=== PATIENT | male | born 1955 | race Caucasian/White ===

== ENCOUNTER 2020-12-18 09:41 | Emergency (ER) | payer MEDICARE ==
[~2020-12-18] VITALS: Ht 195.6 cm; Wt 70.8 kg
[2020-12-18 10:31] LABS: CALCIUM 8.7 mg/dL (8.5-10.1); CREATININE 1.1 mg/dL (0.6-1.3)
[2020-12-18 10:35] LABS: APTT 26.3 Seconds (25.0-31.3)
[2020-12-18 10:45] LABS: ALBUMIN 1.6 g/dL (3.4-5.0)
[2020-12-18 11:07] LABS: PLATELET ESTIMATE ADEQUATE
[2020-12-18 11:37] LABS: ABSOLUTE EOSINOPHILS 0.7 thou/uL (0.0-0.7); ABSOLUTE LYMPHOCYTES 1.8 thou/uL (0.8-5.3); ABSOLUTE MONOCYTES 2.5 thou/uL (0.0-1.2); ABSOLUTE NEUTROPHILS 30.2 thou/uL (1.6-8.1); HEMATOCRIT 34.9 % (42.0-52.0); HEMOGLOBIN 11.5 gm/dL (14.0-18.0); MCH 28.3 pg (26.0-34.0); MCHC 32.8 g/dL (28.0-37.0); MCV 86.2 fL (80.0-100.0); PLATELET COUNT* 840 thou/uL (150-400); RBC 4.05 mil/uL (4.50-6.00); RDW-CV 14.5 % (10.5-14.5); WBC 35.1 thou/uL (4.0-11.0)
[2020-12-18 11:38] LABS: MPV 6.9 fl. (7.2-11.1)
[2020-12-18 13:19] VITALS: BP 152/66
--- NOTE | 2020-12-18 15:03 | EKG ---
[place] [address] ELECTROCARDIOGRAM REPORT Name: LADIHENOK Gibbs Room: [facility]#: [id number] Admission: 12/18/20 Attend Phys: Discharge: 12/18/20 Date of : 57 Date of Service: 12/18/20 0951 Report #: [id number] THIS REPORT FOR: //name// [facility] ED Test Date: 2020-12-18 Test Time: 09:51:35 Pat Name: HENOK JACOBS Department: Room: Gender: Vacation Sales Advisor: [facility] : 1955 Requested By: Rito Jeter Order Number: [id number] MD: Tim Quintanilla Measurements Intervals [place] Rate: 91 P: 39 IA: 157 QRS: 29 QRSD: 92 T: 44 QT: 382 QTc: 471 Interpretive Statements Sinus rhythm Probable left atrial enlargement Baseline wander in lead(s) I,II,aVR,V3,V4 No previous ECG available for comparison Electronically Signed On 12-18-2020 15:03:48 CDT by Tim Quintanilla [email or web address] <ELECTRONICALLY SIGNED> By: Tim Quintanilla MD, [facility] 12/18/20 1503 0951 0951 Tim Quintanilla MD, [facility] /EPI
== END 2020-12-18 13:20 | disposition short-term general hospital (02) ==
LOC: M.ERS 09:41
PROVIDERS: Emergency Medicine Emergency Medical Services
DX: M72.6 Necrotizing fasciitis (principal); Z20.822 Contact with and (suspected) exposure to COVID-19; E11.9 Type 2 diabetes mellitus without complications; Z90.49 Acquired absence of other specified parts of digestive tract

== ENCOUNTER 2021-08-03 13:58 | Inpatient (IN) | payer OTHER ==
[2021-08-03] VITALS (8 sets, daily range): BP systolic 111–178; BP diastolic 41–149
[~2021-08-03] VITALS: Ht 167.6 cm; Wt 66.7 kg
[2021-08-03] MEDS ORDERED: NEURONTIN100 MG PO (14:11)
[2021-08-03] MEDS ORDERED: NORCO 10-325 T1 EACH PO (14:12)
[2021-08-03] MEDS ORDERED: TOPROL XL50 MG PO (14:12)
[2021-08-03] MEDS ORDERED: LIPITOR10 MG PO (14:12)
[2021-08-03 14:28] LABS: ABSOLUTE BASOPHILS 0.1 thou/uL (0.0-0.2); ABSOLUTE EOSINOPHILS 0.1 thou/uL (0.0-0.7); ABSOLUTE LYMPHOCYTES 1.6 thou/uL (0.8-5.3); ABSOLUTE MONOCYTES 0.6 thou/uL (0.0-1.2); ABSOLUTE NEUTROPHILS 8.6 thou/uL (1.6-8.1); BASOPHILS 1.1 %; EOSINOPHILS 1.2 %; HEMATOCRIT 31.6 % (42.0-52.0); HEMOGLOBIN 10.2 gm/dL (14.0-18.0); LYMPHOCYTES 14.8 %; MCH 28.5 pg (26.0-34.0); MCHC 32.3 g/dL (28.0-37.0); MCV 88.1 fL (80.0-100.0); MONOCYTES 5.8 %; MPV 7.5 fl. (7.2-11.1); NUCLEATED RBCS 0 /100WBC; PLATELET COUNT* 425 thou/uL (150-400); POLYS 77.1 %; RBC 3.58 mil/uL (4.50-6.00); RDW-CV 15.4 % (10.5-14.5); WBC 11.1 thou/uL (4.0-11.0)
[2021-08-03 14:40] LABS: CALCIUM 8.3 mg/dL (8.5-10.1); CREATININE 1.6 mg/dL (0.6-1.3)
[2021-08-03 14:50] LABS: ALBUMIN 2.6 g/dL (3.4-5.0); MAGNESIUM 2.3 mg/dL (1.8-2.4); TOTAL BILIRUBIN 0.1 mg/dL (<0.1-1.0); TOTAL PROTEIN 6.8 g/dL (6.4-8.2)
[2021-08-03 14:51] LABS: POTASSIUM 7.2 mmol/L (3.5-5.1)
[2021-08-03 15:10] LABS: CALCIUM 8.2 mg/dL (8.5-10.1); CREATININE 1.7 mg/dL (0.6-1.3)
[2021-08-03 15:14] LABS: POTASSIUM 6.6 mmol/L (3.5-5.1)
--- NOTE | 2021-08-03 15:48 | EKG ---
[place] [address] ELECTROCARDIOGRAM REPORT Name: REYNALDOHENOK Teri Room: [place] [address] ADM IN [facility]#: [id number] Admission: 08/03/21 Attend Phys: Sukhi Loco, Discharge: Date of : 57 Date of Service: 08/03/21 1413 Report #: [id number] THIS REPORT FOR: //name// [facility] ED Test Date: 2021-08-03 Test Time: 14:13:29 Pat Name: HENOK JACOBS Department: Room: [facility] Gender: M Physician General Practice: [facility] : 1955 Requested By: Alex Chun Order Number: [id number] MD: Huan Mercedes Measurements Intervals [place] Rate: 86 P: 46 AK: 215 QRS: 66 QRSD: 105 T: 18 QT: 369 QTc: 442 Interpretive Statements Sinus rhythm Borderline prolonged AK interval Abnormal inferior Q waves Repol abnrm suggests ischemia, anterolateral Baseline wander in lead(s) V5 Compared to ECG 12/18/2020 09:51:35 Inferior Q waves now present Q waves now present Early repolarization now present Possible ischemia now present Electronically Signed On 08-03-2021 15:48:12 DANCE MASTER by Huan Mercedes [email or web address] <ELECTRONICALLY SIGNED> By: Huan Mercedes MD, [facility] 08/03/21 1548 1413 1413 Huan Mercedes MD, [facility] /EPI
[2021-08-03 16:33] LABS: CHOLESTEROL 118 mg/dL (<200); HDL CHOLESTEROL 45 mg/dL (>40); LDL CHOLESTEROL 56 mg/dL (<100); TC:HDL 2.6 Ratio (Not establshd); TRIGLYCERIDE 85 mg/dL (<150); VLDL 17 mg/dL (<40)
[2021-08-03 16:34] LABS: SERUM ASSESSMENT Clear
[2021-08-03 16:57] LABS: BE -13.3 mmol/L (-2 to +3); PCO2 42.6 mmHg (35.0-45.0)
[2021-08-03 17:01] LABS: pH 7.155 (7.340-7.450)
[2021-08-03 20:01] LABS: CALCIUM 7.7 mg/dL (8.5-10.1); CREATININE 1.6 mg/dL (0.6-1.3)
[2021-08-03 20:11] LABS: POTASSIUM 6.7 mmol/L (3.5-5.1)
[2021-08-03 22:13] LABS: URINE BILIRUBIN NEGATIVE (Negative); URINE BLOOD 2+ (Negative); URINE CLARITY CLEAR; URINE COLOR YELLOW; URINE GLUCOSE-RANDOM TRACE (Negative); URINE KETONES NEGATIVE (Negative); URINE LEUKOCYTES-REFLEX NEGATIVE (Negative); URINE NITRITE-REFLEX NEGATIVE (Negative); URINE PROTEIN 3+ (Negative); URINE SPECIFIC GRAVITY 1.025 (1.005-1.030); URINE UROBILINOGEN 0.2 E.U./dl (0.2-1.0)
[2021-08-03 22:27] LABS: INFLUENZA A ANTIGEN Negative (Negative); INFLUENZA B ANTIGEN Negative (Negative)
[2021-08-03 22:28] LABS: SQUAMOUS 0-3 Few /LPF (0-3); WBC CASTS 0-3 /LPF
[2021-08-03 22:29] LABS: URINE WBC-REFLEX 0-5 Rare /HPF (0-5)
[2021-08-03 22:30] LABS: BACTERIA-REFLEX 1-9 Few /HPF (None Seen)
[2021-08-03 22:31] LABS: TRANSITIONAL EPITHEL CELL 0-3 Few /LPF (None Seen)
[2021-08-03 22:39] LABS: CRYSTALS None Seen /LPF (None Seen)
[2021-08-03 23:42] LABS: PCO2 33.2 mmHg (35.0-45.0); pH 7.349 (7.340-7.450)
[2021-08-03 23:54] LABS: PO2 190.4 mmHg (75.0-100.0)
[2021-08-04] VITALS (15 sets, daily range): BP systolic 105–139; BP diastolic 32–53
[2021-08-04 03:02] LABS: MCH 28.8 pg (26.0-34.0); MCV 87.5 fL (80.0-100.0); MPV 7.8 fl. (7.2-11.1); NUCLEATED RBCS 0 /100WBC; RBC 2.74 mil/uL (4.50-6.00); RDW-CV 15.1 % (10.5-14.5); WBC 6.7 thou/uL (4.0-11.0)
[2021-08-04 03:14] LABS: ALBUMIN 1.8 g/dL (3.4-5.0); CALCIUM 7.8 mg/dL (8.5-10.1); CREATININE 1.6 mg/dL (0.6-1.3); MAGNESIUM 2.1 mg/dL (1.8-2.4); TOTAL BILIRUBIN 0.1 mg/dL (<0.1-1.0); TOTAL PROTEIN 5.3 g/dL (6.4-8.2)
[2021-08-04 03:16] LABS: POTASSIUM 6.5 mmol/L (3.5-5.1)
[2021-08-04 03:17] LABS: HEMOGLOBIN 7.9 gm/dL (14.0-18.0)
[2021-08-04 07:28] LABS: ABSOLUTE LYMPHOCYTES 0.7 thou/uL (0.8-5.3)
[2021-08-04 07:29] LABS: PLATELET ESTIMATE ADEQUATE
[2021-08-04 08:31] LABS: BE -1.8 mmol/L (-2 to +3); PCO2 28.2 mmHg (35.0-45.0); pH 7.487 (7.340-7.450)
--- NOTE | 2021-08-04 08:51 | EKG ---
[place] [address] ELECTROCARDIOGRAM REPORT Name: HENOK JACOBS Teri Room: [address] ADM IN .R.#: [id number] Admission: 08/03/21 Attend Phys: Sukhi Loco, Discharge: Date of : 57 Date of Service: 08/04/21 0519 Report #: [id number] THIS REPORT FOR: //name// [facility] Test Date: 2021-08-04 Test Time: 05:19:14 Pat Name: HENOK JACOBS Department: Room: [address] Gender: M Outboard Motor Tester: EDY : 1955 Requested By: Huan Mercedes Order Number: [id number] Reading MD: Felice Davis Measurements Intervals [place] Rate: 57 P: 7 CT: 176 QRS: 13 QRSD: 93 T: -16 QT: 454 QTc: 442 Interpretive Statements Sinus rhythm Borderline repolarization abnormality Compared to ECG 08/03/2021 14:13:29 Inferior Q waves no longer present Q waves no longer present Possible ischemia no longer present Electronically Signed On 08-04-2021 8:51:41 BOILER TESTING TECHNICIAN by Felice Davis [email or web address] <ELECTRONICALLY SIGNED> By: Felice Davis MD, [facility] 08/04/21 0851 8 8 Felice Davis MD, [facility] /EPI
[2021-08-04 11:13] LABS: CALCIUM 7.9 mg/dL (8.5-10.1); CREATININE 1.6 mg/dL (0.6-1.3)
[2021-08-04 12:06] LABS: HEMATOCRIT 23.7 % (42.0-52.0); MCH 28.8 pg (26.0-34.0); MCHC 33.6 g/dL (28.0-37.0); MCV 85.7 fL (80.0-100.0); MPV 7.9 fl. (7.2-11.1); NUCLEATED RBCS 0 /100WBC; PLATELET COUNT* 273 thou/uL (150-400); RBC 2.76 mil/uL (4.50-6.00); RDW-CV 15.1 % (10.5-14.5)
[2021-08-04 12:20] LABS: APTT 30.8 Seconds (25.0-31.3); PROTIME 10.4 Seconds (9.20-11.50)
[2021-08-04 12:54] LABS: ABSOLUTE LYMPHOCYTES 0.6 thou/uL (0.8-5.3); ABSOLUTE MONOCYTES 0.1 thou/uL (0.0-1.2); ABSOLUTE NEUTROPHILS 10.3 thou/uL (1.6-8.1); PLATELET ESTIMATE ADEQUATE
[2021-08-04 12:55] LABS: HYPOCHROMASIA 1+; MICROCYTES Occasional
--- NOTE | 2021-08-04 13:09 | 2DMMODE ---
[place] [address] 2 D/M-MODE ECHOCARDIOGRAM Name: REYNALDOHENOK Teri Room: [address] IN [facility]#: [id number] Admission: 08/03/21 Attend Phys: Sukhi Loco, Discharge: Date of : 57 Date of Service: 08/04/21 1308 Report #: [id number] THIS REPORT FOR: cc: Pro Portillo,Pro Martinez,Felice Solorio MD [facility] ~ APPROVED REPORT Study performed: 08/04/2021 10:52:44 EXAM: Comprehensive 2D, Doppler, and color-flow Echocardiogram Patient Location: In-Patient Room #: 001 Status: routine BSA: 1.68 HR: 105 bpm BP: 134/47 mmHg Rhythm: NSR Other Information Study Quality: Good Indications Dyspnea Elevated Troponin 2D Dimensions IVSd: 13.18 (7-11mm) LVOT Diam: 21.30 (18-24mm) LVDd: 49.49 mm PWd: 13.32 (7-11mm) Ascending Ao: 36.77 (22-36mm) LVDs: 28.79 (25-40mm) Aortic Root: 36.26 mm Volumes Left Atrial Volume (Systole) LA ESV Index: 27.00 mL/m2 Aortic Valve AoV Peak Srinath.: 1.46 m/s AO Peak Gr.: 8.53 mmHg LVOT Max P.93 mmHg AO Mean Gr.: 5.76 mmHg LVOT Mean P.14 mmHg LVOT Max V: 0.86 m/s AO V2 VTI: 24.93 cm LVOT Mean V: 0.72 m/s GENI (VTI): 2.83 cm2 LVOT V1 VTI: 19.78 [place] [address] 2 D/M-MODE ECHOCARDIOGRAM Name: HENOK JACOBS Room: [address] IN ..#: [id number] Admission: 08/03/21 Attend Phys: Sukhi Loco, Discharge: Date of : 57 Date of Service: 08/04/21 1308 Report #: [id number] TDI Lateral E' Srinath.: 0.14 m/s Pulmonary Valve PV Peak Srinath.: 1.47 m/s PV Peak Gr.: 8.70 mmHg Left Ventricle The left ventricle is normal size. There is normal LV segmental wall motion. Mild concentric left ventricular hypertrophy. Left ventricular systolic function is normal. The left ventricular ejection fraction is within the normal range. LVEF is 55-60%. This study is not technically sufficient to allow evaluation of the LV diastolic function. Right Ventricle The right ventricle is normal size. The right ventricular systolic function is normal. Atria The left atrium size is normal. The right atrium size is normal. Aortic Valve Mild aortic valve sclerosis. No aortic regurgitation is present. There is no aortic valvular stenosis. Mitral Valve There is mitral annular calcification. There is no mitral valve regurgitation noted. No evidence of mitral valve stenosis. Tricuspid Valve The tricuspid valve is normal in structure. Unable to assess PA pressure. Trace tricuspid regurgitation. Pulmonic Valve The pulmonary valve is normal in structure. There is no pulmonic valvular regurgitation. Great Vessels The aortic root is normal in size. IVC is normal in size and collapses >50% with inspiration. Pericardium Trace pericardial effusion. [place] [address] 2 D/M-MODE ECHOCARDIOGRAM Name: HENOK JACOBS Room: [address] IN [facility].#: [id number] Admission: 08/03/21 Attend Phys: Sukhi Loco, Discharge: Date of : 57 Date of Service: 08/04/21 130 Report #: [id number] <Conclusion> Mild concentric left ventricular hypertrophy. LVEF is 55-60%. Mild aortic valve sclerosis. <ELECTRONICALLY SIGNED> By: Felice Davis MD, FACC 08/04/21 1308 07 1308 Felice Davis MD, FACC /INF
[2021-08-04 15:26] LABS: BE -3.8 mmol/L (-2 to +3); PCO2 VENOUS 42.6 mmHg (41.0-51.0); PO2 VENOUS 106.8 mmHg (35.0-45.0)
[2021-08-05] VITALS (44 sets, daily range): BP systolic 105–171; BP diastolic 39–73
[2021-08-05 05:14] LABS: ABSOLUTE LYMPHOCYTES 0.4 thou/uL (0.8-5.3); ABSOLUTE MONOCYTES 0.4 thou/uL (0.0-1.2); ABSOLUTE NEUTROPHILS 9.1 thou/uL (1.6-8.1); BASOPHILS 0.3 %; LYMPHOCYTES 4.5 %; MCH 29.5 pg (26.0-34.0); MCV 86.7 fL (80.0-100.0); MONOCYTES 3.7 %; MPV 7.2 fl. (7.2-11.1); NUCLEATED RBCS 0 /100WBC; PLATELET COUNT* 236 thou/uL (150-400); POLYS 91.5 %; RBC 2.27 mil/uL (4.50-6.00); RDW-CV 15.4 % (10.5-14.5)
[2021-08-05 05:28] LABS: ALBUMIN 2.8 g/dL (3.4-5.0); CALCIUM 7.8 mg/dL (8.5-10.1); CREATININE 2.1 mg/dL (0.6-1.3); TOTAL BILIRUBIN 0.2 mg/dL (<0.1-1.0); TOTAL PROTEIN 5.3 g/dL (6.4-8.2)
[2021-08-05 05:33] LABS: POTASSIUM 6.2 mmol/L (3.5-5.1)
[2021-08-05 05:34] LABS: HEMATOCRIT 19.7 % (42.0-52.0); HEMOGLOBIN 6.7 gm/dL (14.0-18.0)
[2021-08-05 07:09] LABS: GLYCOHEMOGLOBIN (HGB A1C) 5.9 % (4.8-5.6)
[2021-08-05 09:05] LABS: PLATELET COUNT* 263 thou/uL (150-400)
--- NOTE | 2021-08-05 09:13 | EKG ---
[place] [address] ELECTROCARDIOGRAM REPORT Name: HENOK JACOBS Teri Room: [address] ADM IN .R.#: [id number] Admission: 08/03/21 Attend Phys: Sukhi Loco, Discharge: Date of : 57 Date of Service: 08/04/212124 Report #: [id number] THIS REPORT FOR: //name// [facility] Test Date: 2021-08-04 Test Time: 21:25:23 Pat Name: HENOK JACOBS Department: Room: [address] Gender: M Bone Plant Supervisor: [email or web address] : 1955 Requested By: Hailey Bey Order Number: [id number] Reading MD: Huan Mercedes Measurements Intervals [place] Rate: 93 P: 66 CA: 202 QRS: 37 QRSD: 93 T: 220 QT: 328 QTc: 408 Interpretive Statements Sinus rhythm Repol abnrm, severe global ischemia (LM/MVD) Compared to ECG 08/04/2021 05:19:14 Possible ischemia now present Electronically Signed On 08-05-2021 9:13:01 BUSINESS CONTROL SPECIALIST by Huan Mercedes [email or web address] <ELECTRONICALLY SIGNED> By: Huan Mercedes MD, FACC 08/05/21912 24 24 Huan Mercedes MD, FAC /EPI
--- NOTE | 2021-08-05 09:13 | EKG ---
[place] [address] ELECTROCARDIOGRAM REPORT Name: HENOK JACOBS Teri Room: [address] ADM IN .R.#: [id number] Admission: 08/03/21 Attend Phys: Sukhi Loco, Discharge: Date of : 57 Date of Service: 08/05/21 0630 Report #: [id number] THIS REPORT FOR: //name// [facility] Test Date: 2021-08-05 Test Time: 06:30:27 Pat Name: HENOK JACOBS Department: Room: [address] Gender: M Merchandise Stocker: [email or web address] : 1955 Requested By: Hailey Bey Order Number: [id number] Reading MD: Huan Mercedes Measurements Intervals [place] Rate: 61 P: 45 IA: 174 QRS: 48 QRSD: 91 T: 187 QT: 404 QTc: 407 Interpretive Statements Sinus rhythm Repol abnrm suggests ischemia, diffuse leads Compared to ECG 08/04/2021 21:25:23 No significant changes Electronically Signed On 08-05-2021 9:13:38 HEAD AND NECK SURGEON by Huan Mercedes [email or web address] <ELECTRONICALLY SIGNED> By: Huan Mercedes MD, FACC 08/05/21912 9 9 Huan Mercedes MD, FAC /EPI
[2021-08-05 10:49] LABS: BE -4.6 mmol/L (-2 to +3); PCO2 41.5 mmHg (35.0-45.0); PO2 70.8 mmHg (75.0-100.0); pH 7.325 (7.340-7.450)
[2021-08-05 12:49] LABS: CALCIUM 7.8 mg/dL (8.5-10.1); CREATININE 2.2 mg/dL (0.6-1.3); POTASSIUM 5.9 mmol/L (3.5-5.1)
[2021-08-05 14:33] LABS: CLARITY CLEAR; SOURCE LEFT PLEURAL; TOTAL VOLUME 1400 ml
[2021-08-05 14:54] LABS: BF RBC 1116 /mm3; TOTAL CELL COUNT 127 /mm3
[2021-08-05 15:36] LABS: HEMATOCRIT 23.4 % (42.0-52.0); HEMOGLOBIN 7.8 gm/dL (14.0-18.0); MCH 29.3 pg (26.0-34.0); MCHC 33.5 g/dL (28.0-37.0); MCV 87.5 fL (80.0-100.0); MPV 7.9 fl. (7.2-11.1); RBC 2.67 mil/uL (4.50-6.00); RDW-CV 15.8 % (10.5-14.5); WBC 11.4 thou/uL (4.0-11.0)
[2021-08-05 16:21] LABS: BF LYMPHOCYTES 39 %; BF MONOCYTES 40 %; BF POLYS 21 %; BF TISSUE 2 /100 WBC
--- NOTE | 2021-08-05 17:29 | CON ---
[address] [address] CONSULTATION Name: HENOK JACOBS Room: [address] IN M.R.#: [id number] Admission: 08/03/21 Attend Phys: Sukhi Loco MD Discharge: Date of : 57 Report #: [id number] THIS REPORT FOR: cc: Pro Portillo Steve T. DO Pervez, Adeel MD ~ DATE OF CONSULTATION: 08/04/2021 Consult has been requested by Dr. Sukhi Loco. INDICATION FOR CONSULTATION: Acute hypoxemic respiratory failure. HISTORY OF PRESENT ILLNESS: This is a 65-year-old gentleman who has an extensive history of smoking, has not been previously diagnosed with COPD. His baseline creatinine is normal at 1.1. Information regarding immunization to COVID-19 is not available to me at this time. The patient is admitted with acute shortness of breath. In fact, he has been using oxygen and breathing treatments, which were prescribed to his . O2 saturation was found to be in the mid 80s and therefore, he was endotracheally intubated on presentation. He did have a significant metabolic acidosis in the initial arterial blood gas is with a pH of 7.155. He also does have an elevation of creatinine up to 1.7 yesterday. He has had a CTA chest, which shows some infiltrates. Also, there are bilateral pleural effusions consistent with fluid overload; however, he is oxygenating and ventilating adequately at this time with 40% FiO2 and a 5 of PEEP. The patient currently is not on pressors. He is on the ventilator and therefore is unable to provide a further history or review of systems. PAST MEDICAL HISTORY: Right leg amputation, diabetes, appendectomy, hypertension, neuropathy, baseline creatinine 1.1. I do not have a measure of his left ventricular ejection fraction available. SOCIAL HISTORY: He has a history of smoking, still smokes, unable to quantify exactly at this time, has a history of heavy alcohol intake in the past, not known to be current. No known illegal drug use. MEDICATIONS: He is prescribed Ida, unknown as to how frequently he uses it. ALLERGIES: No known drug allergies. FAMILY HISTORY: uses oxygen as well as breathing treatments. Further details are not available. PHYSICAL EXAMINATION: GENERAL: He is sedated well. He is on 7 of Versed and 50 of fentanyl. VITAL SIGNS: Has a heart rate of 56 and a blood pressure of 132/48[place] [address] CONSULTATION Name: HENOK JACOBS Room: [address]#: [id number] Admission: 08/03/21 Attend Phys: Sukhi Loco MD Discharge: Date of : 57 Report #: [id number] saturating in the high 90s. He is on 40% FiO2 and a 5 of PEEP, tidal volume of 500, respiratory rate is set at 20. He is afebrile with a temperature 36.8. HEENT: Head is normocephalic and atraumatic. Pupils are bilaterally equal and somewhat constricted. NECK: Does not show raised JVP, asymmetry, mass or lymph nodes. CHEST: Symmetrical expansion on inspection and palpation. On auscultation, breath sounds are bilaterally equal. I do not hear any added sounds. Breath sounds are decreased at bilateral lung bases. HEART: Regular. There is no murmur. ABDOMEN: Soft and nontender. LOWER EXTREMITIES: There is no edema. There is history of right lower extremity amputation. NEUROLOGIC: Moves all extremities to pain. Neurological examination is limited due to presence of sedation. IMAGING: A CT chest that showed bilateral basilar infiltrates. There are moderate size pleural effusions as well. Limited for pulmonary emboli; however, no definite pulmonary emboli identified. LABORATORY DATA: Including a significantly elevated troponin I noted. He does have hyperkalemia with a potassium up to 7.2 yesterday. Arterial blood gas in fact now shows a respiratory alkalosis. ASSESSMENT AND PLAN: 1. Acute hypoxemic respiratory failure. The patient is currently ventilating and oxygenating adequately. He does appear to have some fluid overload on his chest x-rays as well as CT; however, this in fact looks better on the x-ray this morning than yesterday. He is currently ventilating and oxygenating and I therefore in order to maintain his renal function as well as electrolytes. Agree with keeping him well hydrated for now. We will keep him on current sedation except to see if we can cut back on Versed. Recommend that we place a central line. I requested that the AC rate be dropped to 14 after which I will do a venous blood gas through the central line this afternoon and then reassess. 2. Chronic obstructive pulmonary disease exacerbation. He does appear to me that he has previously undiagnosed chronic obstructive pulmonary disease. We will continue with DuoNeb. In fact, I increased the frequency to every 4 hours. We will continue with Solu-Medrol. 3. Pulmonary infiltrates. He is on doxycycline and cefepime. We will continue. We will follow nasal MRSA swab as well as sputum culture if possible. 4. Acute renal failure with metabolic acidosis and hyperkalemia. Hyperkalemia has persisted with potassium of 6.0. Nephrology service is following. For now, agree with keeping him well hydrated. His albumin is 1.8 and I will therefore go ahead and give him some albumin as well. Case was discussed with Dr. Burdick. 5. Acute myocardial infarction. Cardiology Service is on the case. [place] [address] CONSULTATION Name: HENOK JACOBS Room: [address] IN [facility].#: [id number] Admission: 08/03/21 Attend Phys: Sukhi Loco MD Discharge: Date of : 57 Report #: [id number] anticoagulation. 6. Bilateral pleural effusions. These in fact looks smaller on the x-ray this morning than last night even though he was hydrated in between. For now, we will keep him well hydrated as we are able to ventilate and oxygenate adequately. We will assess regarding possible thoracentesis tomorrow morning. If significant pleural effusions are persisting, I will be inclined to request a thoracentesis tomorrow. Echocardiogram is pending at this time. 7. Hyperglycemia, insulin sliding scale. 8. Peripheral vascular disease, status post right [id number] amputation. 9. Chronic venous insufficiency. We will also do venous Dopplers. 10. Deep venous thrombosis prophylaxis, already anticoagulated. 11. Gastrointestinal prophylaxis, Protonix. 12. Clostridium difficile prophylaxis. We will order Lactinex. 13. Anemia/drop in hemoglobin. This is likely dilutional, but we will follow hemoglobin. We will also do coags. 14. Nutrition. We will plan to start tube feeds in a.m. The patient is critically ill at this time. Total time spent providing critical care to this patient today exceeds 45 minutes. <ELECTRONICALLY SIGNED> By: Tyler Arzola MD 08/05/21 1729 1017 [id number] Arzola MD /nt
[2021-08-05 21:06] LABS: COMPLEMENT-C4 24 mg/dL (12-38)
[2021-08-06] VITALS (44 sets, daily range): BP systolic 135–191; BP diastolic 51–85
[2021-08-06 02:06] LABS: HEPATITIS B SURFACE AG Negative (Negative)
[2021-08-06 05:54] LABS: ABSOLUTE LYMPHOCYTES 0.3 thou/uL (0.8-5.3); ABSOLUTE MONOCYTES 0.4 thou/uL (0.0-1.2); ABSOLUTE NEUTROPHILS 9.2 thou/uL (1.6-8.1); BASOPHILS 0.1 %; HEMATOCRIT 24.9 % (42.0-52.0); HEMOGLOBIN 8.4 gm/dL (14.0-18.0); LYMPHOCYTES 2.9 %; MCH 29.5 pg (26.0-34.0); MCHC 33.6 g/dL (28.0-37.0); MCV 87.8 fL (80.0-100.0); MONOCYTES 3.8 %; MPV 7.9 fl. (7.2-11.1); NUCLEATED RBCS 0 /100WBC; PLATELET COUNT* 245 thou/uL (150-400); POLYS 93.2 %; RBC 2.84 mil/uL (4.50-6.00); RDW-CV 15.7 % (10.5-14.5); WBC 9.8 thou/uL (4.0-11.0)
[2021-08-06 06:16] LABS: APTT 27.1 Seconds (25.0-31.3); PROTIME 10.5 Seconds (9.20-11.50)
[2021-08-06 06:18] LABS: ALBUMIN 2.5 g/dL (3.4-5.0); CALCIUM 7.9 mg/dL (8.5-10.1); MAGNESIUM 2.2 mg/dL (1.8-2.4); POTASSIUM 5.3 mmol/L (3.5-5.1); TOTAL BILIRUBIN 0.3 mg/dL (<0.1-1.0); TOTAL PROTEIN 5.3 g/dL (6.4-8.2)
[2021-08-06 06:40] LABS: PHOSPHORUS* 6.1 mg/dL (2.5-4.9)
[2021-08-06 08:33] LABS: BE -3.6 mmol/L (-2 to +3); PCO2 40.8 mmHg (35.0-45.0); PO2 97.5 mmHg (75.0-100.0); pH 7.345 (7.340-7.450)
[2021-08-06 12:07] LABS: BODY FLUID PROTEIN 1.3 g/dL (())
[2021-08-06 14:07] LABS: GLOBULIN TOTAL 2.2 g/dL (2.2-3.9); M-SPIKE Not Observed g/dL (Not Observed)
--- NOTE | 2021-08-06 16:57 | CON ---
[address] [address] CONSULTATION Name: HENOK JACOBS Room: [address] IN M.R.#: [id number] Admission: 08/03/21 Attend Phys: Sukhi Loco MD Discharge: Date of : 57 Report #: [id number] THIS REPORT FOR: cc: Pro Portillo Steve T. DO Vardakis, Gregory DO ~ cc: Pro Portillo DO DATE OF CONSULTATION: 08/06/2021 Please note the time of this dictation, the patient was seen and physically examined by myself. REASON FOR CONSULTATION: Anemia. HISTORY OF PRESENT ILLNESS: This 65-year-old male presenting to the Emergency Room with significant respiratory distress with his O2 sats being in the 80s upon arrival and he was intubated at that time. The patient does have a longstanding history of COPD in which he uses oxygen and breathing treatments at home per his . Most of his H and P is obtained from the chart because the patient is intubated and no family members are at the bedside. Since admission, it has been noted he has not had any bowel movement; however, it now appears he may have developed an ileus given the fentanyl. His abdomen is a little bit more distended and her bowel sounds are hypoactive. Data Services Developer has given him Relistor and Reglan to see about getting his bowels to move. It is unclear regarding any of his GI history. ALLERGIES: No known drug allergies. MEDICATIONS FROM HOME: Include gabapentin, atorvastatin, Toprol, [place]. PAST MEDICAL HISTORY: Diabetic, hypertension. He has got neuropathy, COPD. PAST SURGICAL HISTORY: He has had a right leg amputation and an appendectomy. FAMILY HISTORY: Negative for any GI or female cancers. SOCIAL HISTORY: Significant that he continues to smoke on a daily basis. He has had past use of alcohol. It is unclear on the quantity and for how long. Denies any illegal drug use. REVIEW OF SYSTEMS: Twelve-point review of systems is essentially negative except what is mentioned in the HPI. PHYSICAL EXAMINATION: [place] [address] CONSULTATION Name: HENOK JACOBS Room: [address]#: [id number] Admission: 08/03/21 Attend Phys: Sukhi Loco MD Discharge: Date of : 57 Report #: [id number] VITAL SIGNS: Temperature 36.8, pulse 85, respirations 14, blood pressure 148/51. HEART: Regular rate and rhythm. LUNGS: Diminished with some expiratory rhonchi faintly noted. ABDOMEN: Soft. Hypoactive bowel sounds, a little distended and firm. LABORATORY DATA: Hemoglobin on admission was 10.2 on the 9th; on the he dropped down to 6.7 and he is back up to 8.4. No overt bleeding has been noted. White count is 9.8, platelets are 245. PT is 10.5, INR is 1. GFR is running at 34. Iron is 26, TIBC 257, percentage sat was 10, ferritin 77. B12 of 291 and lipase was 899. IMAGING: Chest x-ray, bilateral perihilar and basilar opacities noted. IMPRESSION:: 1. Anemia. 2. Abdominal distention, possible ileus. 3. Elevated lipase. 4. Acute respiratory distress secondary to chronic obstructive pulmonary disease requiring intubation. 4. Acute renal failure. 5. Diabetes. PLAN: 1. Obtain a soluble transferrin receptor. 2. Monitor for overt bleeding. 3. Data Services Developer ordered Relistor and Reglan. 4. We will check an abdominal x-ray. 5. Further recommendations to be made once Dr. Murphy sees the patient later today. 6. Timing of EGD: To be determined. Thank you for allowing us to participate in this patient's care. Please do not hesitate to call with any questions in regard to this consult. <ELECTRONICALLY SIGNED> By: Neto Murphy DO 08/06/21 1657 1042 [id number] Murphy DO /nt
[2021-08-06 21:06] LABS: ANA INTERPRETATION Positive (())
[2021-08-07] VITALS (20 sets, daily range): BP systolic 135–172; BP diastolic 49–78
[2021-08-07 06:00] LABS: ABSOLUTE LYMPHOCYTES 0.4 thou/uL (0.8-5.3); ABSOLUTE MONOCYTES 0.8 thou/uL (0.0-1.2); ABSOLUTE NEUTROPHILS 11.3 thou/uL (1.6-8.1); BASOPHILS 0.1 %; HEMATOCRIT 28.9 % (42.0-52.0); HEMOGLOBIN 9.5 gm/dL (14.0-18.0); LYMPHOCYTES 3.1 %; MCH 29.1 pg (26.0-34.0); MCHC 32.8 g/dL (28.0-37.0); MCV 88.6 fL (80.0-100.0); MONOCYTES 6.6 %; MPV 8.1 fl. (7.2-11.1); NUCLEATED RBCS 0 /100WBC; PLATELET COUNT* 280 thou/uL (150-400); POLYS 90.2 %; RBC 3.26 mil/uL (4.50-6.00); RDW-CV 15.6 % (10.5-14.5); WBC 12.5 thou/uL (4.0-11.0)
[2021-08-07 06:34] LABS: ALBUMIN 2.8 g/dL (3.4-5.0); CALCIUM 7.9 mg/dL (8.5-10.1); CREATININE 1.8 mg/dL (0.6-1.3); POTASSIUM 5.3 mmol/L (3.5-5.1)
[2021-08-07 06:47] LABS: ALBUMIN 2.7 g/dL (3.4-5.0); CALCIUM 7.9 mg/dL (8.5-10.1); CREATININE 1.9 mg/dL (0.6-1.3); MAGNESIUM 2.3 mg/dL (1.8-2.4); POTASSIUM 5.1 mmol/L (3.5-5.1); TOTAL BILIRUBIN 0.3 mg/dL (<0.1-1.0); TOTAL PROTEIN 5.9 g/dL (6.4-8.2)
[2021-08-07 08:31] LABS: BE -5.3 mmol/L (-2 to +3); PCO2 38.5 mmHg (35.0-45.0); PO2 90.1 mmHg (75.0-100.0); pH 7.334 (7.340-7.450)
[2021-08-07 10:09] LABS: HEMATOCRIT 27.6 % (42.0-52.0); MCHC 32.7 g/dL (28.0-37.0); MCV 88.7 fL (80.0-100.0); MPV 7.8 fl. (7.2-11.1); RBC 3.12 mil/uL (4.50-6.00); RDW-CV 15.3 % (10.5-14.5); WBC 11.1 thou/uL (4.0-11.0)
[2021-08-08] VITALS (32 sets, daily range): BP systolic 142–182; BP diastolic 50–75
[2021-08-08 05:49] LABS: BE -4.5 mmol/L (-2 to +3); PCO2 39.5 mmHg (35.0-45.0); PO2 84.8 mmHg (75.0-100.0)
[2021-08-08 06:06] LABS: ABSOLUTE LYMPHOCYTES 0.4 thou/uL (0.8-5.3); ABSOLUTE MONOCYTES 0.7 thou/uL (0.0-1.2); ABSOLUTE NEUTROPHILS 9.6 thou/uL (1.6-8.1); HEMATOCRIT 29.2 % (42.0-52.0); HEMOGLOBIN 9.7 gm/dL (14.0-18.0); LYMPHOCYTES 3.7 %; MCH 29.2 pg (26.0-34.0); MCHC 33.1 g/dL (28.0-37.0); MCV 88.2 fL (80.0-100.0); MONOCYTES 6.7 %; MPV 8.2 fl. (7.2-11.1); NUCLEATED RBCS 0 /100WBC; PLATELET COUNT* 257 thou/uL (150-400); POLYS 89.6 %; RBC 3.31 mil/uL (4.50-6.00); RDW-CV 15.3 % (10.5-14.5); WBC 10.7 thou/uL (4.0-11.0)
[2021-08-08 06:57] LABS: ALBUMIN 2.4 g/dL (3.4-5.0); CALCIUM 7.9 mg/dL (8.5-10.1); CREATININE 1.5 mg/dL (0.6-1.3); POTASSIUM 4.8 mmol/L (3.5-5.1); TOTAL BILIRUBIN 0.3 mg/dL (<0.1-1.0); TOTAL PROTEIN 5.5 g/dL (6.4-8.2)
[2021-08-09] VITALS (47 sets, daily range): BP systolic 136–197; BP diastolic 49–100
[2021-08-09 04:38] LABS: ABSOLUTE LYMPHOCYTES 1.6 thou/uL (0.8-5.3); ABSOLUTE NEUTROPHILS 10.2 thou/uL (1.6-8.1); BASOPHILS 0.2 %; EOSINOPHILS 0.1 %; HEMATOCRIT 29.6 % (42.0-52.0); HEMOGLOBIN 9.7 gm/dL (14.0-18.0); LYMPHOCYTES 11.8 %; MCH 29.2 pg (26.0-34.0); MCHC 32.9 g/dL (28.0-37.0); MCV 88.7 fL (80.0-100.0); MONOCYTES 14.5 %; MPV 7.5 fl. (7.2-11.1); NUCLEATED RBCS 0 /100WBC; PLATELET COUNT* 273 thou/uL (150-400); POLYS 73.4 %; RBC 3.34 mil/uL (4.50-6.00); RDW-CV 15.4 % (10.5-14.5); WBC 13.9 thou/uL (4.0-11.0)
[2021-08-09 05:03] LABS: ALBUMIN 2.2 g/dL (3.4-5.0); CALCIUM 8.1 mg/dL (8.5-10.1); CREATININE 1.1 mg/dL (0.6-1.3); MAGNESIUM 2.5 mg/dL (1.8-2.4); PHOSPHORUS* 3.8 mg/dL (2.5-4.9); POTASSIUM 4.3 mmol/L (3.5-5.1); TOTAL BILIRUBIN 0.2 mg/dL (<0.1-1.0); TOTAL PROTEIN 5.3 g/dL (6.4-8.2)
--- NOTE | 2021-08-09 13:07 | PATH ---
[address] [address] PATHOLOGY RPT PROCEDURE Name: HENOK JACOBS Room: [address] IN [facility]#: [id number] Admission: 08/03/21 Date of : 57 Discharge: Report #: [id number] Path Case #: [id number] Note [facility] Accession Number: [id number] TESTS RESULT FLAG UNITS REF RANGE LAB Clinician Provided Cytology Information No. of containers..01 Other (Miscellaneous) Source: PLEURAL FLUID DIAGNOSIS: 01 PLEURAL FLUID NEGATIVE FOR MALIGNANT CELLS. MESOTHELIAL CELLS ARE PRESENT. SCANT CELLULARITY. THIS INTERPRETATION INCLUDES EVALUATION OF A CELL BLOCK. COMMENT, MOSTLY BLOOD AND REACTIVE MESOTHELIAL CELLS ARE PRESENT. Signed out by: 01 Lam Vyas MD, Pathologist NPI- [id number] Performed by: Sonam Cunha, Metallurgical Technician ([facility]) Gross description: 01 10ML, CLEAR, YELLOW /LCS 08/06/2021 1854 Local FLAG LEGEND: L-Low Normal,H-High Normal,LL-Alert Low,HH-Alert High <-Panic Low,>-Panic High,A-Abnormal,AA-Critical Abnormal Performed at: [address] [place] [address] Lam Vyas MD, Specimen Comment: A courtesy copy of this report has been sent to [phone] Specimen Comment: Report sent to Performed at: [address], [place], [place] [id number] MD Lam Vyas MD Phone: [phone]
[2021-08-10] VITALS (40 sets, daily range): BP systolic 132–182; BP diastolic 45–68
[2021-08-10 05:53] LABS: ABSOLUTE LYMPHOCYTES 0.9 thou/uL (0.8-5.3); ABSOLUTE MONOCYTES 1.4 thou/uL (0.0-1.2); ABSOLUTE NEUTROPHILS 10.3 thou/uL (1.6-8.1); BASOPHILS 0.2 %; EOSINOPHILS 0.1 %; HEMATOCRIT 27.6 % (42.0-52.0); HEMOGLOBIN 9.1 gm/dL (14.0-18.0); LYMPHOCYTES 7.4 %; MONOCYTES 11.1 %; MPV 8.1 fl. (7.2-11.1); NUCLEATED RBCS 0 /100WBC; PLATELET COUNT* 221 thou/uL (150-400); POLYS 81.2 %; RBC 3.14 mil/uL (4.50-6.00); RDW-CV 15.5 % (10.5-14.5); WBC 12.6 thou/uL (4.0-11.0)
[2021-08-10 06:16] LABS: ALBUMIN 2.1 g/dL (3.4-5.0); CREATININE 0.9 mg/dL (0.6-1.3); MAGNESIUM 2.6 mg/dL (1.8-2.4); POTASSIUM 4.2 mmol/L (3.5-5.1); TOTAL BILIRUBIN 0.2 mg/dL (<0.1-1.0); TOTAL PROTEIN 5.2 g/dL (6.4-8.2)
[2021-08-10 18:10] LABS: CALCIUM 7.8 mg/dL (8.5-10.1); CREATININE 0.9 mg/dL (0.6-1.3); POTASSIUM 4.6 mmol/L (3.5-5.1)
[2021-08-11] VITALS (44 sets, daily range): BP systolic 131–172; BP diastolic 47–111
[2021-08-11 06:08] LABS: ABSOLUTE EOSINOPHILS 0.2 thou/uL (0.0-0.7); ABSOLUTE LYMPHOCYTES 1.6 thou/uL (0.8-5.3); ABSOLUTE MONOCYTES 1.4 thou/uL (0.0-1.2); ABSOLUTE NEUTROPHILS 9.4 thou/uL (1.6-8.1); EOSINOPHILS 1.7 %; HEMATOCRIT 25.8 % (42.0-52.0); HEMOGLOBIN 8.6 gm/dL (14.0-18.0); LYMPHOCYTES 12.6 %; MCH 29.2 pg (26.0-34.0); MCHC 33.2 g/dL (28.0-37.0); MCV 88.1 fL (80.0-100.0); MONOCYTES 10.8 %; MPV 8.9 fl. (7.2-11.1); NUCLEATED RBCS 0 /100WBC; PLATELET COUNT* 237 thou/uL (150-400); POLYS 74.9 %; RBC 2.93 mil/uL (4.50-6.00); RDW-CV 15.4 % (10.5-14.5); WBC 12.6 thou/uL (4.0-11.0)
[2021-08-11 06:18] LABS: ALBUMIN 2.3 g/dL (3.4-5.0); CALCIUM 8.2 mg/dL (8.5-10.1); CREATININE 0.9 mg/dL (0.6-1.3); MAGNESIUM 2.8 mg/dL (1.8-2.4); TOTAL BILIRUBIN 0.2 mg/dL (<0.1-1.0); TOTAL PROTEIN 5.2 g/dL (6.4-8.2)
[2021-08-11 06:24] LABS: PHOSPHORUS* 4.1 mg/dL (2.5-4.9)
[2021-08-11 12:42] LABS: BE -7.2 mmol/L (-2 to +3); PCO2 35.2 mmHg (35.0-45.0); PO2 78.2 mmHg (75.0-100.0); pH 7.326 (7.340-7.450)
[2021-08-11 18:06] LABS: CREATININE 0.9 mg/dL (0.6-1.3); MAGNESIUM 2.6 mg/dL (1.8-2.4); POTASSIUM 4.7 mmol/L (3.5-5.1)
[2021-08-12] VITALS (70 sets, daily range): BP systolic 88–179; BP diastolic 32–69
[2021-08-12 04:49] LABS: ALBUMIN 3.1 g/dL (3.4-5.0); MAGNESIUM 2.6 mg/dL (1.8-2.4); PHOSPHORUS* 5.1 mg/dL (2.5-4.9); POTASSIUM 4.9 mmol/L (3.5-5.1); TOTAL BILIRUBIN 0.3 mg/dL (<0.1-1.0); TOTAL PROTEIN 6.2 g/dL (6.4-8.2)
[2021-08-12 04:53] LABS: HEMATOCRIT 29.7 % (42.0-52.0); HEMOGLOBIN 9.7 gm/dL (14.0-18.0); MCH 29.3 pg (26.0-34.0); MCHC 32.5 g/dL (28.0-37.0); MCV 89.9 fL (80.0-100.0); MPV 9.3 fl. (7.2-11.1); NUCLEATED RBCS 0 /100WBC; RDW-CV 15.5 % (10.5-14.5); WBC 23.9 thou/uL (4.0-11.0)
[2021-08-12 05:41] LABS: PLATELET COUNT* 362 thou/uL (150-400)
[2021-08-12 06:17] LABS: ABSOLUTE LYMPHOCYTES 0.5 thou/uL (0.8-5.3); ABSOLUTE MONOCYTES 1.9 thou/uL (0.0-1.2); ABSOLUTE NEUTROPHILS 21.5 thou/uL (1.6-8.1); METAMYELOCYTES 1 %; MYELOCYTES 1 %; PLATELET ESTIMATE ADEQUATE
[2021-08-12 10:46] LABS: BE -5.7 mmol/L (-2 to +3); PCO2 41.1 mmHg (35.0-45.0); pH 7.309 (7.340-7.450)
--- NOTE | 2021-08-12 15:35 | 2DMMODE ---
[place] [address] 2 D/M-MODE ECHOCARDIOGRAM Name: HENOK JACOBS Room: [address] IN [facility]#: [id number] Admission: 08/03/21 Attend Phys: Sukhi Loco, Discharge: Date of : 57 Date of Service: 08/12/21 1534 Report #: [id number] THIS REPORT FOR: cc: Pro Portillo Steve T. DO Liston, Michael J. MD [facility] ~ APPROVED REPORT Study performed: 08/12/2021 11:20:56 EXAM: Limited 2D Echocardiogram Patient Location: In-Patient Room #: 004 Status: routine BSA: 1.89 HR: 83 bpm BP: 125/54 mmHg Rhythm: NSR Other Information Study Quality: Good Indications Congestive Heart Failure COPD re-assess EF Left Ventricle The left ventricle is normal size. There is regional hypokinesis involving the apex apical anterior and apical septal wall. Mild concentric left ventricular hypertrophy. The left ventricular systolic function is preserved. LVEF is 55-60%. Right Ventricle The right ventricle is normal size. The right ventricular systolic function is normal. Atria The left atrium size is normal. The right atrium size is normal. Aortic Valve Mild aortic valve sclerosis. Mitral Valve [facility] [address] [place] [address] 2 D/M-MODE ECHOCARDIOGRAM Name: HENOK JACOBS Room: [address] ADM IN M.R.#: [id number] Admission: 08/03/21 Attend Phys: Sukhi Loco, Discharge: Date of : 57 Date of Service: 08/12/21 1534 Report #: [id number] There is mitral annular calcification. Tricuspid Valve The tricuspid valve is normal in structure. Pulmonic Valve The pulmonary valve is normal in structure. Great Vessels The aortic root is normal in size. IVC is normal in size and collapses >50% with inspiration. Pericardium Mild circumferential pericardial effusion. No echo indications of pericardial tamponade. Left pleural effusion. <Conclusion> The left ventricle is normal size. Mild concentric left ventricular hypertrophy. The left ventricular systolic function is preserved. LVEF is 55-60%. There is regional hypokinesis involving the apex apical anterior and apical septal wall. Mild aortic valve sclerosis. There is mitral annular calcification. IVC is normal in size and collapses >50% with inspiration. Mild circumferential pericardial effusion. No echo indications of pericardial tamponade. Left pleural effusion. <ELECTRONICALLY SIGNED> By: Huan Mercedes MD, [facility] 08/12/21 1534 1534 1534 Huan Mercedes MD, FACC /INF
[2021-08-12 15:45] LABS: CREATININE 1.1 mg/dL (0.6-1.3); MAGNESIUM 2.6 mg/dL (1.8-2.4); POTASSIUM 5.1 mmol/L (3.5-5.1)
[2021-08-12 18:30] LABS: BE -5.4 mmol/L (-2 to +3); PCO2 42.4 mmHg (35.0-45.0); PO2 100.9 mmHg (75.0-100.0); pH 7.304 (7.340-7.450)
[2021-08-13] VITALS (71 sets, daily range): BP systolic 107–151; BP diastolic 39–67
[2021-08-13 05:00] LABS: ABSOLUTE BASOPHILS 0.1 thou/uL (0.0-0.2); ABSOLUTE LYMPHOCYTES 0.3 thou/uL (0.8-5.3); ABSOLUTE MONOCYTES 0.2 thou/uL (0.0-1.2); ABSOLUTE NEUTROPHILS 10.7 thou/uL (1.6-8.1); BASOPHILS 0.6 %; HEMATOCRIT 26.5 % (42.0-52.0); HEMOGLOBIN 8.6 gm/dL (14.0-18.0); LYMPHOCYTES 2.5 %; MCH 29.1 pg (26.0-34.0); MCHC 32.4 g/dL (28.0-37.0); MCV 89.9 fL (80.0-100.0); MONOCYTES 2.2 %; MPV 8.9 fl. (7.2-11.1); NUCLEATED RBCS 0 /100WBC; POLYS 94.7 %; RBC 2.95 mil/uL (4.50-6.00); RDW-CV 15.4 % (10.5-14.5); WBC 11.3 thou/uL (4.0-11.0)
[2021-08-13 05:17] LABS: PLATELET COUNT* 261 thou/uL (150-400)
[2021-08-13 05:20] LABS: ALBUMIN 2.5 g/dL (3.4-5.0); CREATININE 1.4 mg/dL (0.6-1.3); MAGNESIUM 2.7 mg/dL (1.8-2.4); POTASSIUM 5.1 mmol/L (3.5-5.1); TOTAL BILIRUBIN 0.2 mg/dL (<0.1-1.0); TOTAL PROTEIN 5.6 g/dL (6.4-8.2)
[2021-08-13 05:57] LABS: URINE BILIRUBIN NEGATIVE (Negative); URINE BLOOD 2+ (Negative); URINE CLARITY SL CLOUDY; URINE COLOR YELLOW; URINE GLUCOSE-RANDOM NEGATIVE (Negative); URINE KETONES NEGATIVE (Negative); URINE LEUKOCYTES-REFLEX NEGATIVE (Negative); URINE NITRITE-REFLEX NEGATIVE (Negative); URINE PROTEIN 2+ (Negative); URINE SPECIFIC GRAVITY 1.025 (1.005-1.030); URINE UROBILINOGEN 0.2 E.U./dl (0.2-1.0)
[2021-08-13 06:06] LABS: BACTERIA-REFLEX None Seen /HPF (None Seen); MUCUS None Seen strn/LPF (None Seen); SQUAMOUS NONE SEEN /LPF (0-3); URINE WBC-REFLEX 6-15 Few /HPF (0-5)
[2021-08-13 06:07] LABS: CASTS None Seen /LPF (None Seen); COARSE GRANULAR CASTS 0-3 Few /LPF (None Seen); CRYSTALS None Seen /LPF (None Seen)
[2021-08-13 08:22] LABS: BE -6.1 mmol/L (-2 to +3); PCO2 44.3 mmHg (35.0-45.0); PO2 84.5 mmHg (75.0-100.0)
[2021-08-13 08:24] LABS: pH 7.279 (7.340-7.450)
[2021-08-14] VITALS (25 sets, daily range): BP systolic 107–163; BP diastolic 38–83
[2021-08-14 05:07] LABS: ABSOLUTE LYMPHOCYTES 0.5 thou/uL (0.8-5.3); ABSOLUTE MONOCYTES 1.1 thou/uL (0.0-1.2); ABSOLUTE NEUTROPHILS 11.1 thou/uL (1.6-8.1); BASOPHILS 0.1 %; HEMATOCRIT 24.2 % (42.0-52.0); HEMOGLOBIN 7.9 gm/dL (14.0-18.0); LYMPHOCYTES 3.8 %; MCH 28.7 pg (26.0-34.0); MCHC 32.5 g/dL (28.0-37.0); MCV 88.4 fL (80.0-100.0); MONOCYTES 8.6 %; MPV 8.8 fl. (7.2-11.1); NUCLEATED RBCS 0 /100WBC; PLATELET COUNT* 241 thou/uL (150-400); POLYS 87.5 %; RBC 2.74 mil/uL (4.50-6.00); RDW-CV 15.1 % (10.5-14.5); WBC 12.7 thou/uL (4.0-11.0)
[2021-08-14 05:42] LABS: ALBUMIN 2.2 g/dL (3.4-5.0); CALCIUM 7.5 mg/dL (8.5-10.1); CREATININE 1.3 mg/dL (0.6-1.3); MAGNESIUM 2.3 mg/dL (1.8-2.4); TOTAL BILIRUBIN 0.2 mg/dL (<0.1-1.0)
[2021-08-14 05:50] LABS: POTASSIUM 3.6 mmol/L (3.5-5.1)
[2021-08-14 07:37] LABS: BE 0 mmol/L (-2 to +3); PCO2 34.2 mmHg (35.0-45.0); pH 7.456 (7.340-7.450)
[2021-08-14 07:45] LABS: PO2 55.8 mmHg (75.0-100.0)
[2021-08-14 13:50] LABS: ABSOLUTE BASOPHILS 0.2 thou/uL (0.0-0.2); ABSOLUTE LYMPHOCYTES 0.2 thou/uL (0.8-5.3); ABSOLUTE MONOCYTES 0.6 thou/uL (0.0-1.2); ABSOLUTE NEUTROPHILS 7.7 thou/uL (1.6-8.1); BASOPHILS 2.5 %; EOSINOPHILS 0.1 %; LYMPHOCYTES 2.6 %; MCH 29.5 pg (26.0-34.0); MCHC 33.5 g/dL (28.0-37.0); MCV 88.2 fL (80.0-100.0); MONOCYTES 6.9 %; MPV 8.4 fl. (7.2-11.1); NUCLEATED RBCS 0 /100WBC; PLATELET COUNT* 196 thou/uL (150-400); POLYS 87.9 %; RBC 2.22 mil/uL (4.50-6.00); WBC 8.8 thou/uL (4.0-11.0)
[2021-08-14 14:13] LABS: ABSOLUTE EOSINOPHILS 0.1 thou/uL (0.0-0.7); ABSOLUTE LYMPHOCYTES 0.3 thou/uL (0.8-5.3); ABSOLUTE MONOCYTES 0.5 thou/uL (0.0-1.2); ABSOLUTE NEUTROPHILS 9.4 thou/uL (1.6-8.1); EOSINOPHILS 0.9 %; HEMATOCRIT 22.9 % (42.0-52.0); HEMOGLOBIN 7.7 gm/dL (14.0-18.0); LYMPHOCYTES 2.7 %; MCH 29.5 pg (26.0-34.0); MCHC 33.7 g/dL (28.0-37.0); MCV 87.7 fL (80.0-100.0); MONOCYTES 5.1 %; MPV 8.5 fl. (7.2-11.1); NUCLEATED RBCS 0 /100WBC; PLATELET COUNT* 245 thou/uL (150-400); POLYS 91.3 %; RBC 2.61 mil/uL (4.50-6.00); RDW-CV 15.3 % (10.5-14.5); WBC 10.3 thou/uL (4.0-11.0)
[2021-08-14 14:15] LABS: HEMOGLOBIN 6.5 gm/dL (14.0-18.0)
[2021-08-14 14:16] LABS: HEMATOCRIT 19.5 % (42.0-52.0)
[2021-08-14 17:14] LABS: CALCIUM 7.7 mg/dL (8.5-10.1); CREATININE 1.2 mg/dL (0.6-1.3); MAGNESIUM 2.4 mg/dL (1.8-2.4); POTASSIUM 3.8 mmol/L (3.5-5.1)
[2021-08-15] VITALS (23 sets, daily range): BP systolic 120–145; BP diastolic 42–57
[2021-08-15 04:38] LABS: ABSOLUTE LYMPHOCYTES 0.9 thou/uL (0.8-5.3); ABSOLUTE MONOCYTES 1.5 thou/uL (0.0-1.2); ABSOLUTE NEUTROPHILS 9.2 thou/uL (1.6-8.1); BASOPHILS 0.1 %; HEMATOCRIT 21.6 % (42.0-52.0); LYMPHOCYTES 7.7 %; MCH 28.6 pg (26.0-34.0); MCHC 32.5 g/dL (28.0-37.0); MONOCYTES 12.8 %; MPV 8.6 fl. (7.2-11.1); NUCLEATED RBCS 0 /100WBC; PLATELET COUNT* 228 thou/uL (150-400); POLYS 79.4 %; RBC 2.46 mil/uL (4.50-6.00); RDW-CV 15.6 % (10.5-14.5); WBC 11.6 thou/uL (4.0-11.0)
[2021-08-15 05:21] LABS: ALBUMIN 2.6 g/dL (3.4-5.0); CALCIUM 8.1 mg/dL (8.5-10.1); CALCIUM 8.2 mg/dL (8.5-10.1); CREATININE 1.2 mg/dL (0.6-1.3); CREATININE 1.3 mg/dL (0.6-1.3); PHOSPHORUS* 2.9 mg/dL (2.5-4.9); POTASSIUM 4.2 mmol/L (3.5-5.1); TOTAL BILIRUBIN 0.2 mg/dL (<0.1-1.0)
[2021-08-15 08:00] LABS: BE 1.4 mmol/L (-2 to +3); PCO2 45.9 mmHg (35.0-45.0); PO2 97.4 mmHg (75.0-100.0); pH 7.383 (7.340-7.450)
--- NOTE | 2021-08-15 08:01 | CON ---
[address] [address] CONSULTATION Name: HENOK JACOBS Room: [address] IN M.R.#: [id number] Admission: 08/03/21 Attend Phys: Sukhi Loco MD Discharge: Date of : 57 Report #: [id number] THIS REPORT FOR: cc: Pro Portillo Steve T. DO Biggs, F. Douglas MD [facility] ~ DATE OF CONSULTATION: 08/14/2021 CARDIOLOGY FOLLOWUP NOTE HISTORY OF PRESENT ILLNESS: The patient is intubated and sedated and unresponsive. PHYSICAL EXAMINATION: VITAL SIGNS: His pulse was 84, blood pressure 141/42, temperature 37.2, and respirations 18. HEENT: His head was atraumatic. Eyes were clear. NECK: Supple. There was no jugular venous distention or hepatojugular reflux. Thyroid was not enlarged. There was no adenopathy. SKIN: Warm and dry. Mucous membranes are moist. LUNGS: His breath sounds were decreased bilaterally. There was increased expiratory phase. HEART: Revealed somewhat distant heart tones, but there was an S1 and S2, I could not hear a murmur, rub or gallop. ABDOMEN: Soft, flat, and nontender. No palpable masses, no organomegaly. EXTREMITIES: Reveal no cyanosis, clubbing or edema. The patient remains on the ventilator. IMPRESSION: 1. Chronic obstructive pulmonary disease exacerbation. 2. Non-ST segment elevation myocardial infarction about 10 days ago or more. 3. Coronary artery disease. 4. Fluid overload that has improved. RECOMMENDATION: I would increase his aspirin to 81 mg plain aspirin twice a day and I would continue Lovenox, but increase it to perhaps 40 mg twice a day, both of those done in the interest of attempting to prevent further myocardial infarction. <ELECTRONICALLY SIGNED> By: Miller Plascencia MD, FACC 08/15/21 0801 0724 [id number]. Nato Plascencia MD, FACC /nt
--- NOTE | 2021-08-15 11:12 | CON ---
[address] [address] CONSULTATION Name: HENOK JACOBS Room: [address] IN M.R.#: [id number] Admission: 08/03/21 Attend Phys: Sukhi Loco MD Discharge: Date of : 57 Report #: [id number] THIS REPORT FOR: cc: Pro Portillo Steve T. DO Biggs, F. Douglas MD [facility] ~ DATE OF CONSULTATION: 08/15/2021 SUBJECTIVE: The patient is intubated and sedated on the ventilator and unresponsive. OBJECTIVE: VITAL SIGNS: His pulse is 74. Blood pressure 132/47, O2 sat 97, respiratory rate is 14, temperature is 36.2. NECK: There is no jugular venous distention or hepatojugular reflux. LUNGS: Fairly clear to auscultation. Breath sounds are decreased bilaterally. There is an increased expiratory phase. HEART: Examination of the heart revealed distant, but audible first and second heart sounds. I could not hear murmur or rub. There is a soft S4. There is no S3. Rhythm was regular. The rate was 72. ABDOMEN: Soft, flat, apparently nontender. There were no palpable masses. EXTREMITIES: Revealed no cyanosis, clubbing or edema. The patient was unresponsive. ASSESSMENT AND PLAN: 1. Chronic obstructive pulmonary disease exacerbation. 2. Acute on chronic respiratory failure. 3. Coronary artery disease. 4. Status post non-ST segment elevation myocardial infarction. 5. Adult onset diabetes mellitus. 6. Fluid overload. RECOMMENDATIONS: We will continue current therapy. <ELECTRONICALLY SIGNED> By: Miller Plascencia MD, [facility] 08/15/21 1112 0728 [id number]. Nato Plascencia MD, FACC /nt
[2021-08-15 17:33] LABS: ABSOLUTE LYMPHOCYTES 0.3 thou/uL (0.8-5.3); ABSOLUTE MONOCYTES 0.5 thou/uL (0.0-1.2); ABSOLUTE NEUTROPHILS 12.5 thou/uL (1.6-8.1); BASOPHILS 0.1 %; EOSINOPHILS 0.2 %; HEMOGLOBIN 7.8 gm/dL (14.0-18.0); LYMPHOCYTES 2.3 %; MCHC 32.7 g/dL (28.0-37.0); MCV 88.5 fL (80.0-100.0); MONOCYTES 3.9 %; MPV 8.4 fl. (7.2-11.1); NUCLEATED RBCS 0 /100WBC; PLATELET COUNT* 240 thou/uL (150-400); POLYS 93.5 %; RBC 2.71 mil/uL (4.50-6.00); RDW-CV 15.6 % (10.5-14.5); WBC 13.3 thou/uL (4.0-11.0)
[2021-08-15 17:37] LABS: CALCIUM 8.2 mg/dL (8.5-10.1); CREATININE 1.2 mg/dL (0.6-1.3); MAGNESIUM 2.5 mg/dL (1.8-2.4)
[2021-08-15 17:42] LABS: POTASSIUM 5.3 mmol/L (3.5-5.1)
[2021-08-16] VITALS (19 sets, daily range): BP systolic 130–168; BP diastolic 25–53
[2021-08-16 04:13] LABS: HEMATOCRIT 23.2 % (42.0-52.0); HEMOGLOBIN 7.7 gm/dL (14.0-18.0); MCH 29.1 pg (26.0-34.0); MCHC 33.2 g/dL (28.0-37.0); MCV 87.8 fL (80.0-100.0); MPV 8.4 fl. (7.2-11.1); NUCLEATED RBCS 0 /100WBC; PLATELET COUNT* 241 thou/uL (150-400); RBC 2.65 mil/uL (4.50-6.00); WBC 12.4 thou/uL (4.0-11.0)
[2021-08-16 04:17] LABS: ALBUMIN 2.8 g/dL (3.4-5.0); CALCIUM 8.8 mg/dL (8.5-10.1); CREATININE 0.9 mg/dL (0.6-1.3); MAGNESIUM 2.4 mg/dL (1.8-2.4); PHOSPHORUS* 2.8 mg/dL (2.5-4.9); POTASSIUM 4.7 mmol/L (3.5-5.1); TOTAL BILIRUBIN 0.3 mg/dL (<0.1-1.0); TOTAL PROTEIN 5.3 g/dL (6.4-8.2)
[2021-08-16 08:24] LABS: ABSOLUTE LYMPHOCYTES 1.6 thou/uL (0.8-5.3); ABSOLUTE MONOCYTES 1.4 thou/uL (0.0-1.2); ABSOLUTE NEUTROPHILS 9.4 thou/uL (1.6-8.1); PLATELET ESTIMATE ADEQUATE
[2021-08-16 15:27] LABS: ABSOLUTE BASOPHILS 0.1 thou/uL (0.0-0.2); ABSOLUTE LYMPHOCYTES 0.7 thou/uL (0.8-5.3); ABSOLUTE NEUTROPHILS 15.6 thou/uL (1.6-8.1); BASOPHILS 0.4 %; EOSINOPHILS 0.1 %; HEMATOCRIT 26.4 % (42.0-52.0); HEMOGLOBIN 8.6 gm/dL (14.0-18.0); LYMPHOCYTES 3.9 %; MCH 28.7 pg (26.0-34.0); MCHC 32.5 g/dL (28.0-37.0); MCV 88.3 fL (80.0-100.0); MONOCYTES 5.7 %; MPV 8.5 fl. (7.2-11.1); NUCLEATED RBCS 0 /100WBC; PLATELET COUNT* 249 thou/uL (150-400); POLYS 89.9 %; RBC 2.98 mil/uL (4.50-6.00); RDW-CV 15.2 % (10.5-14.5); WBC 17.4 thou/uL (4.0-11.0)
--- NOTE | 2021-08-16 16:58 | EKG ---
[place] [address] ELECTROCARDIOGRAM REPORT Name: HENOK JACOBS Teri Room: [address] ADM IN .R.#: [id number] Admission: 08/03/21 Attend Phys: Sukhi Loco, Discharge: Date of : 57 Date of Service: 08/13/21 1533 Report #: [id number] THIS REPORT FOR: //name// [facility] Test Date: 2021-08-13 Test Time: 15:33:17 Pat Name: HENOK JACOBS Department: Room: [address] Gender: M Mental Hygienist: - : 1955 Requested By: Michela Worley Order Number: [id number] Reading MD: Felice Davis Measurements Intervals [place] Rate: 98 P: 69 [place]: 162 QRS: 65 QRSD: 92 T: 235 QT: 308 QTc: 394 Interpretive Statements Sinus rhythm Repol abnrm, severe global ischemia (LM/MVD) Compared to ECG 08/05/2021 06:30:27 No significant changes Electronically Signed On 08-16-2021 16:58:16 COMPUTER [employer] INVESTIGATOR by Felice Davis [email or web address] <ELECTRONICALLY SIGNED> By: Felice Davis MD, FACC 08/16/21 1658 1533 1533 Felice Davis MD, [facility] /EPI
[2021-08-17] VITALS (18 sets, daily range): BP systolic 126–171; BP diastolic 31–64
[2021-08-17 03:58] LABS: HEMATOCRIT 24.8 % (42.0-52.0); HEMOGLOBIN 8.1 gm/dL (14.0-18.0); MCH 29.1 pg (26.0-34.0); MCHC 32.7 g/dL (28.0-37.0); MPV 7.9 fl. (7.2-11.1); RBC 2.79 mil/uL (4.50-6.00); RDW-CV 15.1 % (10.5-14.5); WBC 11.7 thou/uL (4.0-11.0)
[2021-08-17 04:11] LABS: ALBUMIN 2.9 g/dL (3.4-5.0); CALCIUM 8.6 mg/dL (8.5-10.1); CREATININE 0.7 mg/dL (0.6-1.3); MAGNESIUM 2.3 mg/dL (1.8-2.4); POTASSIUM 4.4 mmol/L (3.5-5.1); TOTAL BILIRUBIN 0.2 mg/dL (<0.1-1.0); TOTAL PROTEIN 5.2 g/dL (6.4-8.2)
[2021-08-17 10:59] LABS: CALCIUM 8.2 mg/dL (8.5-10.1); CREATININE 0.7 mg/dL (0.6-1.3); POTASSIUM 4.6 mmol/L (3.5-5.1)
[2021-08-18] VITALS (26 sets, daily range): BP systolic 100–181; BP diastolic 30–77
[2021-08-18 05:58] LABS: HEMATOCRIT 27.4 % (42.0-52.0); HEMOGLOBIN 9.2 gm/dL (14.0-18.0); MCH 29.5 pg (26.0-34.0); MCHC 33.6 g/dL (28.0-37.0); MCV 87.7 fL (80.0-100.0); MPV 8.2 fl. (7.2-11.1); RBC 3.12 mil/uL (4.50-6.00); RDW-CV 15.5 % (10.5-14.5); WBC 17.5 thou/uL (4.0-11.0)
[2021-08-18 06:11] LABS: ALBUMIN 3.5 g/dL (3.4-5.0); CALCIUM 8.9 mg/dL (8.5-10.1); CREATININE 0.7 mg/dL (0.6-1.3); MAGNESIUM 2.3 mg/dL (1.8-2.4); POTASSIUM 4.2 mmol/L (3.5-5.1); TOTAL BILIRUBIN 0.4 mg/dL (<0.1-1.0); TOTAL PROTEIN 5.9 g/dL (6.4-8.2)
[2021-08-18 11:56] LABS: BE 5.5 mmol/L (-2 to +3); PCO2 VENOUS 47.7 mmHg (41.0-51.0); PO2 VENOUS 129.1 mmHg (35.0-45.0)
[2021-08-19] VITALS (41 sets, daily range): BP systolic 104–180; BP diastolic 35–77
[2021-08-19 06:00] LABS: ABSOLUTE EOSINOPHILS 0.1 thou/uL (0.0-0.7); ABSOLUTE LYMPHOCYTES 2.5 thou/uL (0.8-5.3); ABSOLUTE MONOCYTES 1.3 thou/uL (0.0-1.2); ABSOLUTE NEUTROPHILS 9.7 thou/uL (1.6-8.1); BASOPHILS 0.1 %; EOSINOPHILS 1.1 %; HEMATOCRIT 27.9 % (42.0-52.0); HEMOGLOBIN 9.1 gm/dL (14.0-18.0); LYMPHOCYTES 18.5 %; MCH 28.8 pg (26.0-34.0); MCHC 32.7 g/dL (28.0-37.0); MCV 87.9 fL (80.0-100.0); MONOCYTES 9.3 %; MPV 8.1 fl. (7.2-11.1); NUCLEATED RBCS 0 /100WBC; PLATELET COUNT* 222 thou/uL (150-400); RBC 3.17 mil/uL (4.50-6.00); RDW-CV 15.1 % (10.5-14.5); WBC 13.6 thou/uL (4.0-11.0)
[2021-08-19 06:45] LABS: ALBUMIN 3.2 g/dL (3.4-5.0); CREATININE 0.7 mg/dL (0.6-1.3); MAGNESIUM 2.3 mg/dL (1.8-2.4); POTASSIUM 4.3 mmol/L (3.5-5.1); TOTAL BILIRUBIN 0.5 mg/dL (<0.1-1.0); TOTAL PROTEIN 5.5 g/dL (6.4-8.2)
[2021-08-20] VITALS (15 sets, daily range): BP systolic 99–169; BP diastolic 34–78
[2021-08-20 05:15] LABS: ABSOLUTE EOSINOPHILS 0.2 thou/uL (0.0-0.7); ABSOLUTE MONOCYTES 1.1 thou/uL (0.0-1.2); BASOPHILS 0.4 %; HEMATOCRIT 27.4 % (42.0-52.0); HEMOGLOBIN 8.9 gm/dL (14.0-18.0); LYMPHOCYTES 16.2 %; MCH 28.9 pg (26.0-34.0); MCHC 32.7 g/dL (28.0-37.0); MCV 88.4 fL (80.0-100.0); MONOCYTES 8.9 %; MPV 8.4 fl. (7.2-11.1); NUCLEATED RBCS 0 /100WBC; PLATELET COUNT* 190 thou/uL (150-400); POLYS 72.5 %; RBC 3.09 mil/uL (4.50-6.00); RDW-CV 14.9 % (10.5-14.5); WBC 12.4 thou/uL (4.0-11.0)
[2021-08-20 05:34] LABS: ALBUMIN 2.8 g/dL (3.4-5.0); CALCIUM 8.4 mg/dL (8.5-10.1); CREATININE 0.7 mg/dL (0.6-1.3); MAGNESIUM 2.4 mg/dL (1.8-2.4); POTASSIUM 3.6 mmol/L (3.5-5.1); TOTAL BILIRUBIN 0.4 mg/dL (<0.1-1.0); TOTAL PROTEIN 5.5 g/dL (6.4-8.2)
[2021-08-20 22:35] LABS: CALCIUM 8.3 mg/dL (8.5-10.1); CREATININE 0.7 mg/dL (0.6-1.3); POTASSIUM 4.2 mmol/L (3.5-5.1)
[2021-08-21 00:21] VITALS: BP 156/51
[2021-08-21 04:42] VITALS: BP 184/42
[2021-08-21 07:29] LABS: ABSOLUTE BASOPHILS 0.1 thou/uL (0.0-0.2); ABSOLUTE EOSINOPHILS 0.4 thou/uL (0.0-0.7); ABSOLUTE LYMPHOCYTES 2.2 thou/uL (0.8-5.3); ABSOLUTE MONOCYTES 0.9 thou/uL (0.0-1.2); ABSOLUTE NEUTROPHILS 7.5 thou/uL (1.6-8.1); BASOPHILS 0.8 %; EOSINOPHILS 3.7 %; HEMATOCRIT 27.2 % (42.0-52.0); HEMOGLOBIN 9.2 gm/dL (14.0-18.0); LYMPHOCYTES 20.2 %; MCH 29.2 pg (26.0-34.0); MCHC 33.9 g/dL (28.0-37.0); MCV 86.2 fL (80.0-100.0); MPV 8.5 fl. (7.2-11.1); NUCLEATED RBCS 0 /100WBC; PLATELET COUNT* 188 thou/uL (150-400); POLYS 67.3 %; RBC 3.16 mil/uL (4.50-6.00); WBC 11.2 thou/uL (4.0-11.0)
[2021-08-21 07:37] LABS: CALCIUM 8.4 mg/dL (8.5-10.1); CREATININE 0.6 mg/dL (0.6-1.3); MAGNESIUM 2.3 mg/dL (1.8-2.4); POTASSIUM 3.9 mmol/L (3.5-5.1); TOTAL BILIRUBIN 0.6 mg/dL (<0.1-1.0); TOTAL PROTEIN 5.9 g/dL (6.4-8.2)
[2021-08-21 12:00] VITALS: BP 144/54
[2021-08-21 16:00] VITALS: BP 148/69
[2021-08-21 20:10] VITALS: BP 134/53
[2021-08-22] VITALS: BP 154/56
[2021-08-22 04:00] VITALS: BP 116/34
[2021-08-22 08:30] VITALS: BP 135/45
[2021-08-22 12:14] VITALS: BP 147/43
[2021-08-22 15:50] VITALS: BP 130/83
[2021-08-22 20:00] VITALS: BP 159/71
[2021-08-23 00:23] VITALS: BP 156/54
[2021-08-23 04:09] LABS: HEMATOCRIT 24.2 % (42.0-52.0); HEMOGLOBIN 8.3 gm/dL (14.0-18.0); MCH 29.6 pg (26.0-34.0); MCHC 34.3 g/dL (28.0-37.0); MCV 86.3 fL (80.0-100.0); MPV 8.7 fl. (7.2-11.1); RBC 2.81 mil/uL (4.50-6.00); RDW-CV 14.8 % (10.5-14.5); WBC 7.8 thou/uL (4.0-11.0)
[2021-08-23 04:14] VITALS: BP 161/41
[2021-08-23 05:27] LABS: CALCIUM 7.5 mg/dL (8.5-10.1); CREATININE 0.6 mg/dL (0.6-1.3)
[2021-08-23 05:36] LABS: POTASSIUM 3.8 mmol/L (3.5-5.1)
[2021-08-23 08:00] VITALS: BP 137/44
[2021-08-23 12:29] VITALS: BP 105/60
[2021-08-23 17:17] VITALS: BP 110/66
[2021-08-23 20:00] VITALS: BP 129/43
[2021-08-24 06:13] VITALS: BP 135/44
[2021-08-24 06:34] LABS: CALCIUM 6.3 mg/dL (8.5-10.1); CREATININE 0.6 mg/dL (0.6-1.3); POTASSIUM 3.1 mmol/L (3.5-5.1)
[2021-08-24 06:52] LABS: ABSOLUTE BASOPHILS 0.1 thou/uL (0.0-0.2); ABSOLUTE EOSINOPHILS 0.1 thou/uL (0.0-0.7); ABSOLUTE LYMPHOCYTES 1.7 thou/uL (0.8-5.3); ABSOLUTE MONOCYTES 0.8 thou/uL (0.0-1.2); ABSOLUTE NEUTROPHILS 5.8 thou/uL (1.6-8.1); BASOPHILS 0.9 %; EOSINOPHILS 1.7 %; HEMATOCRIT 24.1 % (42.0-52.0); HEMOGLOBIN 8.2 gm/dL (14.0-18.0); LYMPHOCYTES 20.5 %; MCH 29.3 pg (26.0-34.0); MCHC 34.1 g/dL (28.0-37.0); MCV 85.8 fL (80.0-100.0); MONOCYTES 9.3 %; MPV 8.8 fl. (7.2-11.1); NUCLEATED RBCS 0 /100WBC; PLATELET COUNT* 171 thou/uL (150-400); POLYS 67.6 %; RDW-CV 15.1 % (10.5-14.5); WBC 8.5 thou/uL (4.0-11.0)
[2021-08-24 08:00] VITALS: BP 128/37
[2021-08-24 12:00] VITALS: BP 124/50
[2021-08-24 12:21] LABS: CALCIUM 7.6 mg/dL (8.5-10.1); CREATININE 0.8 mg/dL (0.6-1.3); MAGNESIUM 2.4 mg/dL (1.8-2.4); POTASSIUM 3.8 mmol/L (3.5-5.1)
[2021-08-24] MEDS ORDERED: METOPROLOL TART25 MG PO (12:46)
[2021-08-24] MEDS ORDERED: LASIX 20 MG TAB20 MG PO (12:46)
[2021-08-24] MEDS ORDERED: CLONAZEPAM 1 MG1 M1 PO (12:46)
[2021-08-24] MEDS ORDERED: ENOXAPARIN40 MG/0.4 SUBQ (12:46)
[2021-08-24] MEDS ORDERED: COLACE100 MG PO (12:46)
[2021-08-24] MEDS ORDERED: SPIRONOLACTONE25 MG PO (12:46)
[2021-08-24] MEDS ORDERED: ALBUTEROL2.5 MG/0.5 INH (12:46)
[2021-08-24] MEDS ORDERED: FOLIC ACID1 MG PO (12:46)
[2021-08-24] MEDS ORDERED: MIRALAX17 GM PO (12:46)
[2021-08-24] MEDS ORDERED: NORCO 10-325 T1 EACH PO (12:46)
[2021-08-24] MEDS ORDERED: QUINU5 PD PO (12:46)
[2021-08-24] MEDS ORDERED: IPRAT-ALBUT 0.5-3 ML INH (12:46)
[2021-08-24] MEDS ORDERED: PREDNISONE 5 MG5 MG PO (12:46)
[2021-08-24] MEDS ORDERED: NOVOLOG100 UNIT/M SUBQ (12:46)
[2021-08-24] MEDS ORDERED: ACIDOPHILUS1 EAC4 PO (12:46)
[2021-08-24] MEDS ORDERED: PROTONIX40 M2 PO (12:46)
[2021-08-24 16:00] VITALS: BP 120/54
[2021-08-24 16:10] LABS: URINE BILIRUBIN NEGATIVE (Negative); URINE BLOOD 1+ (Negative); URINE CLARITY CLEAR; URINE COLOR YELLOW; URINE GLUCOSE-RANDOM NEGATIVE (Negative); URINE KETONES NEGATIVE (Negative); URINE LEUKOCYTES-REFLEX NEGATIVE (Negative); URINE NITRITE-REFLEX NEGATIVE (Negative); URINE PROTEIN 3+ (Negative); URINE SPECIFIC GRAVITY 1.025 (1.005-1.030); URINE UROBILINOGEN 0.2 E.U./dl (0.2-1.0)
[2021-08-24 16:20] LABS: HYALINE CASTS 0-3 Few /LPF (None Seen)
[2021-08-24 16:21] LABS: BACTERIA-REFLEX 1-9 Few /HPF (None Seen); CRYSTALS None Seen /LPF (None Seen); MUCUS None Seen strn/LPF (None Seen); SQUAMOUS 0-3 Few /LPF (0-3); URINE RBC 0-2 Rare /HPF (0-2); URINE WBC-REFLEX 0-5 Rare /HPF (0-5)
[2021-08-24 20:00] VITALS: BP 147/48
[2021-08-25] VITALS (10 sets, daily range): BP systolic 131–161; BP diastolic 56–69
[2021-08-25 05:34] LABS: ABSOLUTE BASOPHILS 0.1 thou/uL (0.0-0.2); ABSOLUTE EOSINOPHILS 0.1 thou/uL (0.0-0.7); ABSOLUTE LYMPHOCYTES 1.8 thou/uL (0.8-5.3); ABSOLUTE MONOCYTES 0.7 thou/uL (0.0-1.2); ABSOLUTE NEUTROPHILS 5.1 thou/uL (1.6-8.1); BASOPHILS 1.3 %; EOSINOPHILS 1.8 %; HEMATOCRIT 26.3 % (42.0-52.0); LYMPHOCYTES 22.5 %; MCH 29.2 pg (26.0-34.0); MCV 85.8 fL (80.0-100.0); MONOCYTES 8.9 %; MPV 8.2 fl. (7.2-11.1); NUCLEATED RBCS 0 /100WBC; PLATELET COUNT* 200 thou/uL (150-400); POLYS 65.5 %; RBC 3.07 mil/uL (4.50-6.00); RDW-CV 15.2 % (10.5-14.5); WBC 7.8 thou/uL (4.0-11.0)
[2021-08-25 05:51] LABS: ALBUMIN 2.7 g/dL (3.4-5.0); CALCIUM 7.9 mg/dL (8.5-10.1); CREATININE 0.7 mg/dL (0.6-1.3); POTASSIUM 3.8 mmol/L (3.5-5.1); TOTAL BILIRUBIN 0.5 mg/dL (<0.1-1.0); TOTAL PROTEIN 5.8 g/dL (6.4-8.2)
[2021-08-25] MEDS ORDERED: BAYER CHEWABLE81 MG PERTUBE (12:57)
[2021-08-27 13:09] VITALS: BP 161/60
[2021-08-27 13:12] VITALS: BP 161/60
== END 2021-08-25 17:42 | disposition home health service (06) | DRG 207 ==
LOC: M.ERS 13:58 → M.2W 14:46 → M.TBA-ER 14:46 → M.ICU 14:46 → M.TBA-ER 15:34 → M.ICU 18:08 → M.ORTHSURG 08-20 16:29 → M.2W 08-22 18:26
PROVIDERS: Family Medicine; Internal Medicine; Internal Medicine Critical Care Medicine; Internal Medicine Nephrology; Pediatrics; Registered Nurse; ADMIT Internal Medicine; ATTEND Internal Medicine
PROC: 5A1955Z Respiratory Ventilation, Greater than 96 Consecutive Hours (ICD-10-PCS; principal; 2021-08-03)
PROC: 0BH17EZ Insertion of Endotracheal Airway into Trachea, Via Natural or Artificial Opening (ICD-10-PCS; principal; 2021-08-03)
PROC: 02HV33Z Insertion of Infusion Device into Superior Vena Cava, Percutaneous Approach (ICD-10-PCS; 2021-08-04)
PROC: 0W993ZZ Drainage of Right Pleural Cavity, Percutaneous Approach (ICD-10-PCS; 2021-08-04)
PROC: 0W9B3ZZ Drainage of Left Pleural Cavity, Percutaneous Approach (ICD-10-PCS; 2021-08-05)
PROC: 30233N1 Transfusion of Nonautologous Red Blood Cells into Peripheral Vein, Percutaneous Approach (ICD-10-PCS; 2021-08-05)
PROC: 5A0935A Assistance with Respiratory Ventilation, Less than 24 Consecutive Hours, High Flow/Velocity Cannula (ICD-10-PCS; 2021-08-11)
PROC: 5A09357 Assistance with Respiratory Ventilation, Less than 24 Consecutive Hours, Continuous Positive Airway Pressure (ICD-10-PCS; 2021-08-11)
PROC: 5A1955Z Respiratory Ventilation, Greater than 96 Consecutive Hours (ICD-10-PCS; 2021-08-12)
DX: J96.21 Acute and chronic respiratory failure with hypoxia (principal); I21.4 Non-ST elevation (NSTEMI) myocardial infarction; R65.11 Systemic inflammatory response syndrome (SIRS) of non-infectious origin with acute organ dysfunction; J18.9 Pneumonia, unspecified organism; I50.31 Acute diastolic (congestive) heart failure; J44.1 Chronic obstructive pulmonary disease with (acute) exacerbation; N17.9 Acute kidney failure, unspecified; J91.8 Pleural effusion in other conditions classified elsewhere; I13.0 Hypertensive heart and chronic kidney disease with heart failure and stage 1 through stage 4 chronic kidney disease, or unspecified chronic kidney disease; K56.7 Ileus, unspecified; E87.5 Hyperkalemia; E11.40 Type 2 diabetes mellitus with diabetic neuropathy, unspecified; I87.2 Venous insufficiency (chronic) (peripheral); E11.51 Type 2 diabetes mellitus with diabetic peripheral angiopathy without gangrene; E11.65 Type 2 diabetes mellitus with hyperglycemia; I25.10 Atherosclerotic heart disease of native coronary artery without angina pectoris; E53.8 Deficiency of other specified B group vitamins; D50.9 Iron deficiency anemia, unspecified; N50.89 Other specified disorders of the male genital organs; N18.9 Chronic kidney disease, unspecified; E11.22 Type 2 diabetes mellitus with diabetic chronic kidney disease; F17.210 Nicotine dependence, cigarettes, uncomplicated; S81.832A Puncture wound without foreign body, left lower leg, initial encounter; Z90.49 Acquired absence of other specified parts of digestive tract; Z89.611 Acquired absence of right leg above knee; X58.XXXA Exposure to other specified factors, initial encounter; Y93.89 Activity, other specified; Y92.89 Other specified places as the place of occurrence of the external cause; Y99.8 Other external cause status